=== PATIENT | female | born 1960 | race African-American/Black ===

== ENCOUNTER → 2017-07-31 | Outpatient (CLI) | payer OTHER | END | disposition home or self-care (01) | LOC: KCIC MRI 11:45 | DX: G43.019 Migraine without aura, intractable, without status migrainosus (principal); H74.8X3 Other specified disorders of middle ear and mastoid, bilateral | CPT/HCPCS: 70544; 70551 ==

== ENCOUNTER 2020-01-26 14:03 | Inpatient (IN) | payer OTHER ==
[~2020-01-26 14:03] MED LIST: ACET-704 PO; ACET325T9 PO; ATOR40TA59 PO; BUPR100T8 PO; CHOL500016 PO; CHOL500051 PO; DEXL60CA2 PO; DICL100T TP; ESTR2TAB ID; FESO8TAB PO; L GA1CAP2 PO; LORA10TA68 PO; METF500T16 PO; MONT10TA49 PO; TRAZ-118 PO; VITA100C8 PO; WARF4TAB64 PO
[2020-01-26 14:09] VITALS: BP 104/59
[2020-01-26] MEDS ORDERED: LIDOCAINE 1% PF 2 ML VIAL. ONE (14:09)
[2020-01-26] MEDS ORDERED: HEPARIN for ARTERIAL LINE 1,500 ML ONE (14:10)
[2020-01-26] MEDS ORDERED: IOHEXOL 300 MG/ML 100ML VIAL. ONE (14:10)
[2020-01-26] MEDS ORDERED: CHLOROPROCAINE 3% MPF 20 ML VIAL. IJ ONE (14:15)
[2020-01-26] MEDS ORDERED: fentaNYL PF VIAL 100 MCG/2 ML VIAL ONE ×2 (14:16→14:34)
[2020-01-26] MEDS ORDERED: MIDAZOLAM HCL/PF 2 MG/2 ML VIAL. ONE ×2 (14:17→14:34)
[2020-01-26] MEDS ORDERED: NITROGLYCERIN 200 MCG/2 ML SYRINGE FOR CATH/VASC LAB. ONE (14:17)
[2020-01-26] MEDS ORDERED: HEPARIN for IV BOLUS 10,000 UNIT/10 ML VIAL. ONE (14:17)
[2020-01-26] MEDS ORDERED: VERAPAMIL 5 MG/2 ML VIAL. ONE (14:17)
--- NOTE | 2020-01-26 14:33 | PDOC1 ---
History and Physical Date of Admission Date of Admission DATE: 01/26/20 TIME: 14:33 Identification/Chief Complaint Chief Complaint admitted for definitive heart cath, transfer from [facility], [place], [facility] SOA, CHEST PAIN WITH MILD ACTIVITY OVER LAST 3 DAYS, radiation left mandible, left arm Past Medical History Past Medical History PAST MEDICAL HISTORY: Significant for reflux disease, hypercholesterolemia, seasonal allergies, overactive bladder and depression. MEDICATIONS: Reviewed. ALLERGIES: Include Augmentin, Zofran, aspirin, and Ultram. Cardiovascular: Hyperlipidemia Pulmonary: No pertinent hx GI: GERD Psych: Anxiety Rheumatologic: No pertinent hx Infectious disease: No pertinent hx Endocrine: No pertinent hx Family History Family History: High Cholestrol Social History Smoke: No ALCOHOL: none Drugs: None Current Medications Current Medications Current Medications Lidocaine HCl (Xylocaine-Mpf 1% 2ml Vial) 2 ml STK-MED ONCE .ROUTE ; Start 01/26/20 at 14:09; Stop 01/26/20 at 14:10; Status DC Iohexol (Omnipaque 300 Mg/ml) 100 ml STK-MED ONCE .ROUTE ; Start 01/26/20 at 14:10; Stop 01/26/20 at 14:10; Status DC Heparin Sodium/ Sodium Chloride 1,500 ml @ As Directed STK-MED ONCE .ROUTE ; Start 01/26/20 at 14:10; Stop 01/26/20 at 14:10; Status DC Chloroprocaine HCl (Nesacaine 3% Mpf) 20 ml 1X ONCE IJ ; Start 01/26/20 at 14:1 5; Stop 01/26/20 at 14:16; Status DC Fentanyl Citrate (Fentanyl 2ml Vial) 100 mcg STK-MED ONCE .ROUTE ; Start 01/26/20 at 14:16; Stop 01/26/20 at 14:17; Status DC Midazolam HCl (Versed) 2 mg STK-MED ONCE .ROUTE ; Start 01/26/20 at 14:17; Stop 01/26/20 at 14:17; Status DC Heparin Sodium (Porcine) (Heparin Sodium) 10,000 unit STK-MED ONCE .ROUTE ; Start 01/26/20 at 14:17; Stop 01/26/20 at 14:17; Status DC Verapamil HCl (Verapamil) 5 mg STK-MED ONCE .ROUTE ; Start 01/26/20 at 14:17; Stop 01/26/20 at 14:17; Status DC Nitroglycerin (Nitroglycerin) 200 mcg STK-MED ONCE .ROUTE ; Start 01/26/20 at 14:17; Stop 01/26/20 at 14:17; Status DC Active Scripts Active Reported Warfarin Sodium 4 Mg Tablet 1 Tab PO SUPPER last dose given prior to dismissal start tomorrow evening with supper home health is to draw blood every saturday and have results sent to [facility] at [phone] Voltaren-Xr (Diclofenac Sodium) 100 Mg Tab.er.24h 4 Mg TP PRN TO RIGHT KNEE was not given in hospital hospital substituted celebrex last dose this am next dose tomorrow am Trazodone Hcl 50 Mg Tablet 1 Tab PO QHS last dose last night next dose tonight [facility] [employer] Capsule (L Gasseri/B Bifidum/B Longum) 1 Each Capsule 1 Each PO HS was not given in hospital substituted milk of magnesia/senokot may resume Montelukast Sodium Tablet (Montelukast Sodium) 10 Mg Tablet 10 Mg PO HS last dose last evening next dose tonight at bedtime Atorvastatin Calcium 40 Mg Tablet 1 Tab PO QHS last dose last night next dose tonight Metformin Hcl 500 Mg Tablet 250 Mg PO BIDWMEALS last dose this am next dose is with supper Estradiol 2 Mg Tablet 0.0375 Mg ID ON SUNDAYS not given in hospital may resume as scheduled Dexilant (Dexlansoprazole) 60 Mg Cap.mp 60 Mg PO HS was not given in hospital hospital substituted protonix may resume when available/scheduled Claritin (Loratadine) 10 Mg Tablet 1 Tab PO DAILY last dose this am next dose tomorrow am Vitamin E (Vitamin E (Dl,Tocopheryl Acet)) 100 Unit Capsule 400 Unit PO DAILY not given in hospital may resume when available Vitamin D3 (Cholecalciferol (Vitamin D3)) 5,000 Unit Tablet 1 Tab PO DAILY not given in hospital may resume when available Vitamin D (Cholecalciferol (Vitamin D3)) 5,000 Unit Capsule 5,000 Unit PO BID Bupropion Hcl Sr (Bupropion Hcl) 100 Mg Tablet.er 1 Tab PO DAILYWBKFT last dose this am next dose tomorrow am Toviaz (Fesoterodine Fumarate) 8 Mg Tab.er.24h 1 Tab PO DAILY not given in hospital substituted ditropan last dose this afternoon may resume when scheduled Allergies Allergies: Coded Allergies: adhesive tape (Verified Allergy, Intermediate, Swelling, 10/04/15) aluminum hydroxide (Verified Allergy, Intermediate, Rash, 10/05/15) amoxicillin (Verified Allergy, Intermediate, Rash, 10/04/15) aspirin (Verified Allergy, Intermediate, Hives, 10/04/15) atropine (Verified Allergy, Intermediate, Rash, 10/05/15) clavulanic acid (Verified Allergy, Intermediate, Rash, 10/04/15) hyoscyamine (Verified Allergy, Intermediate, Rash, 10/05/15) lidocaine (Verified Allergy, Intermediate, Rash, 10/05/15) ondansetron (Verified Allergy, Intermediate, Rash, 09/29/15) phenobarbital (Verified Allergy, Intermediate, Rash, 10/05/15) scopolamine (Verified Allergy, Intermediate, Rash, 10/05/15) simethicone (Verified Allergy, Intermediate, Rash, 10/05/15) tramadol (Verified Allergy, Intermediate, Rash, 09/29/15) ROS General: No: Chills, Night Sweats, Fatigue, Malaise, Appetite, Other PSYCHOLOGICAL ROS: YES: Anxiety Eyes: No Blurry vision, No Decreased vision, No Double vision, No Dry eyes, No Excessive tearing, No Eye Pain, No Itchy Eyes, No Loss of vision, No Photophobia, No Scotomata, No Uses contacts, No Uses glasses, No Other HEENT: No: Heacaches, Visual Changes, Hearing change, Nasal congestion, Nasal discharge, Oral lesions, Sinus pain, Sore Throat, Epistaxis, Sneezing, Snoring, Tinnitus, Vertigo, Vocal changes, Other Hematological and Lymphatic: No: Bleeding Problems, Blood Clots, Blood Transfusions, Brusing, Night Sweats, Pallor, Swollen Lymph Nodes, Other Cardiovascular: yes Chest Pain; No Palpitations, No Orthopnea, No Paroxysmal Noc. Dyspnea, No Edema, No Lt Headedness, No Other Gastrointestinal: No Nausea, No Vomiting, No Abdominal Pain, No Diarrhea, No Constipation, No Melena, No Hematochezia, No Other Genitourinary: No Dysuria, No Frequency, No Incontinence, No Hematuria, No Retention, No Discharge, No Urgency, No Pain, No Flank Pain, No Other, No , No , No , No , No , No , No Musculoskeletal: No Gait Disturbance, No Joint Pain, No Joint Stiffness, No Joint Swelling, No Muscle Pain, No Muscular Weakness, No Pain In:, No Swelling In:, No Other Neurological: No Behavorial Changes, No Bowel/Bladder ControlChng, No Confusion, No Dizziness, No Gait Disturbance, No Headaches, No Impaired Coord/balance, No Memory Loss, No Numbness/Tingling, No Seizures, No Speech Problems, No Tremors, No Visual Changes, No Weakness, No Other Skin: No Dry Skin, No Eczema, No Hair Changes, No Lumps, No Mole Changes, No Mottling, No Nail Changes, No Pruritus, No Rash, No Skin Lesion Changes, No Other, No Acne Physical Exam General: Alert, Oriented X3, Cooperative, No acute distress HEENT: PERRLA Lungs: Clear to auscultation, Normal air movement Heart: S1S2, RRR Breasts: Not examined Abdomen: Normal bowel sounds, Soft Rectal Exam: not examined PELVIC: Examination not indicated Extremities: No cyanosis Neuro: Normal speech, Strength at 5/5 X4 ext, Sensation intact, Cranial nerves 3-12 NL Psych/Mental Status: Mental status NL, Mood NL Vitals Vitals Vital Signs Date Time Temp Pulse Resp B/P (MAP) Pulse Ox O2 Delivery O2 Flow Rate FiO2 01/26/20 14:09 98.6 59 18 104/59 (74) 97 Room Air 98.6 VTE Prophylaxis Ordered VTE Prophylaxis Devices: Yes VTE Pharmacological Prophylaxi: Yes Assessment/Plan Assessment/Plan impression 1. unstable angina 2. positive family hx cad , premature 3. hyperlipidemia 4. SITUATIONAL STRESS plan admit cvc bed consult cardiology npo iv fluid support CATH TODAY WITHOUT CRITICAL CAD/ STENOSIS Justifications for Admission Other Justification NORMA RED MD Jan 26, 2020 14:33
[2020-01-26] MEDS ORDERED: VERAPAMIL 5 MG/2 ML VIAL. IART ONE (15:00)
[2020-01-26] MEDS ORDERED: NITROGLYCERIN 200 MCG/2 ML SYRINGE FOR CATH/VASC LAB. IART ONE (15:00)
[2020-01-26] MEDS ORDERED: MIDAZOLAM HCL/PF 2 MG/2 ML VIAL. IV ONE (15:00)
[2020-01-26] MEDS ORDERED: fentaNYL PF VIAL 100 MCG/2 ML VIAL IV ONE (15:00)
[2020-01-26] MEDS ORDERED: HEPARIN for IV BOLUS 10,000 UNIT/10 ML VIAL. IART ONE (15:00)
[2020-01-26] MEDS ORDERED: IOHEXOL 300 MG/ML 100ML VIAL. IART ONE (15:00)
[2020-01-26 15:11] VITALS: BP 107/67
[2020-01-26 15:17] VITALS: BP 107/67
--- NOTE | 2020-01-26 15:42 | DISCH ---
DISCHARGE INSTRUCTIONS Condition on Discharge Condition on Discharge: Stable Activity After Discharge Activity Instructions for Disc: Activity as tolerated, Walk in house Bathing Instructions: Shower-keep dressing dry, No Tub Bath until see Lifting Instructions after Dis: No heavy lifting, No pulling or pushing, Do not lift >10 pounds Exercise Instruction after Dis: Exercise per therapy Driving Instructions after Dis: Do not drive Weight Bearing Status after Di: No restrictions, Full weight bearing, As tolerated Diet after Discharge Diet after Discharge: Regular Diet Texture: Regular Liquid Texture: Thin Liquid Swallowing Supervision: None needed Wound Incision Care Wound/Incision Care: Ice to area for comfort, Keep wound/cast CDI, Keep wound elevated, Change dressing, Other, see below Checks after Discharge Checks after discharge: Check blood press - daily Contacting the [facility] after DC Call your doctor for: If your condition worsens Treatment/Equipment after DC Adaptive Equipment Issued: None, Front wheeled walker NROMA RED MD Jan 26, 2020 15:42
--- NOTE | 2020-01-26 18:27 | CARD ---
MR#: [id number] Date of Study: 01/26/2020 Ordering Physician: ARMEN MINAYA, Referring Physician: ARMEN MINAYA, Tech: JOHANA SILVA RTR APPROVED REPORT Technologist: JOHANA SILVA RTR Nurse: Miriam Turner R.N. Procedure(s) performed: MODERATE SEDATION TIME: 25 MINUTES FLUORO TIME: 5.1 MIN DOSE: 70.4 GYCM2 CONTRAST: 61CC OMNI 300 LHC, Coronary angiography HISTORY : The patient is a 59 year-old female with a history of . INDICATION The indication(s) include : unstable angina . CSHA Clinical Frailty Scale CSHA Clinical Frailty Scale: Managing Well Heart Failure Heart Failure: No PROCEDURE NARRATIVE Informed consent: Written informed consent was obtained from the patient after adequate discussion of the risks and lexy efits of the procedure. Procedure details: ACCESS: The right wrist was prepped and draped in usual sterile fashion. Under 1% lidocaine local anesthesia a 6 Maori Terumo sheath was placed in the right radial artery via the Seldinger technique. DIAGNOSTIC ANGIOGRAPHY: Right and left coronary arteries were engaged with a 6 Maori TIG catheter. Diagnostic angiography i n multiple views were obtained. Next, the catheter was placed in the left ventricle and a LVEDP was measured. A pullback was performed. All catheters were exchanged over J-tip guidewire. 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 D1: Small caliber vessel with normal angiographic appearance LCX: Moderate caliber dominant vessel with normal angigoraphic appearance. OM1: Moderate caliber vessel with normal angiographic appearance RCA: Small to moderate caliber non-dominant vessel with normal angiographic appearance. CLOSURE: At case completion the right radial sheath was removed and a Terumo radial band was applied with 11 m L of air. Hemostasis was achieved. COMPLICATIONS: No acute complications noted Conclusion 1. Acute diastolic HF. LVEDP 25 mm Hg 2. Normal angiographic appearance of the coronary arteries with mild proximal LAD bridging which shou ld not cause chest pain Recommendations Medical therapy If persistent pain, could consider outpt treadmill MPI for ischemic burden of the anterior wall in th e setting of mid myocardial bridging. Signed by : Armen Minaya, Electronically Approved : 01/26/2020 18:27:17
[2020-01-26 19:50] VITALS: BP 98/61
== END 2020-01-26 20:23 | disposition home or self-care (01) | DRG 286 ==
LOC: 2 NORTH 14:03
PROVIDERS: ADMIT Family Medicine; ATTEND Family Medicine
PROC: 4A023N7 Measurement of Cardiac Sampling and Pressure, Left Heart, Percutaneous Approach (ICD-10-PCS; principal; 2020-01-26)
PROC: B2111ZZ Fluoroscopy of Multiple Coronary Arteries using Low Osmolar Contrast (ICD-10-PCS; 2020-01-26)
DX: I20.0 Unstable angina (principal); I50.31 Acute diastolic (congestive) heart failure; Z82.49 Family history of ischemic heart disease and other diseases of the circulatory system; E78.00 Pure hypercholesterolemia, unspecified; E78.5 Hyperlipidemia, unspecified; F32.9 Major depressive disorder, single episode, unspecified; J30.2 Other seasonal allergic rhinitis; K21.9 Gastro-esophageal reflux disease without esophagitis; N32.81 Overactive bladder; Z88.8 Allergy status to other drugs, medicaments and biological substances; Z79.899 Other long term (current) drug therapy
CPT/HCPCS: 93458; 99152; 99153; C1769; C1892; J1644; J2250; J2400; J3010; J3490; Q9967; G0378